=== PATIENT | male | born 1965 | race American Indian/Alaskan Native ===

== ENCOUNTER 2018-12-19 16:02 | Emergency (ER) | payer OTHER ==
[2018-12-19 18:32] LABS: Basophils # (Auto) 0.1 K/mm3 (0.0-0.1); Basophils % (Auto) 0.7 % (0.0-1.8); Hematocrit 40.9 % (35.5-45.6); Hemoglobin 13.5 gm/dl (11.8-15.2); Lymphocytes # (Auto) 0.7 K/mm3 (1.2-5.4); Lymphocytes % (Auto) 7.5 % (13.4-35.0); Mean Corpuscular HGB Conc 33 % (32-34); Mean Corpuscular Volume 93 fl (84-94); Monocytes # (Auto) 0.8 K/mm3 (0.0-0.8); Monocytes % (Auto) 7.8 % (0.0-7.3); Platelet Count 274 K/mm3 (140-440); Red Blood Count 4.39 M/mm3 (3.65-5.03); Red Cell Distribution Width 15.5 % (13.2-15.2)
[2018-12-19 18:59] LABS: Alanine Aminotransferase 19 units/L (7-56); BUN/Creatinine Ratio 9; Blood Urea Nitrogen 12 mg/dL (9-20); Calcium 8.5 mg/dL (8.4-10.2); Hemolysis Index 4
[2018-12-19] MEDS ORDERED: K-DUR PO ONE (19:14)
--- NOTE | 2018-12-19 19:46 | Emergency Department Report ---
HPI - General Chief Complaint: Medical Clearance Time Seen by Provider: 12/19/18 16:49 - HPI HPI: 53-year-old -[place] male presents to the emergency department after he was found acting bizarrely at a pawn shop and then became unresponsive briefly. EMS was called and gave the patient 0.5 mg of IV Narcan and the patient immediately became more awake and alert. Since being in the emergency department, the patient is an awake, calm, appropriate. He admits to snorting some heroin earlier. He denies daily illicit drug use. He denies any current complaints. He has a past medical history of hypertension and admits that he has been out of his medication for the past few months. He does not have a primary care physician. No recent travel or sick contacts at home. ED Past Medical Hx - Past Medical History Previous Medical History?: Yes Hx Hypertension: Yes - Surgical History Past Surgical History?: No - Social History Smoking Status: Current Every Day Smoker Substance Use Type: Alcohol, Heroin - Medications Home Medications: Home Medications Medication Instructions Recorded Confirmed Last Taken Type amLODIPine [Norvasc] 10 mg PO DAILY #30 tab 12/19/18 Unknown Rx ED Review of Systems ROS: Stated complaint: POSSIBLE O.D. Other details as noted in HPI Comment: All other systems reviewed and negative Constitutional: denies: chills, fever Eyes: denies: eye pain, vision change ENT: denies: ear pain, throat pain Respiratory: denies: cough, shortness of breath Cardiovascular: syncope (unresponsive episode). denies: chest pain Gastrointestinal: denies: abdominal pain, vomiting Genitourinary: denies: dysuria, discharge Musculoskeletal: denies: back pain, arthralgia Skin: denies: rash, lesions Neurological: denies: headache, weakness Physical Exam - Physical Exam Vital Signs: Vital Signs 12/19/18 16:30 Temperature 98.9 F Pulse Rate 94 H Respiratory 12 Rate Blood Pressure 192/121 O2 Sat by Pulse 95 Oximetry Physical Exam: GENERAL: The patient is well-developed well-nourished. HENT: Normocephalic. Atraumatic. Patient has moist mucous membranes. EYES: Extraocular motions are intact. NECK: Supple. Trachea is midline. CHEST/LUNGS: Clear to auscultation. There is no respiratory distress noted. HEART/CARDIOVASCULAR: Regular. There is no tachycardia. There is no murmur. ABDOMEN: Abdomen is soft, nontender. Patient has normal bowel sounds. There is no abdominal distention. SKIN: Skin is warm and dry. NEURO: The patient is awake, alert, and oriented. The patient is cooperative. The patient has no focal neurologic deficits. The patient has normal speech. MUSCULOSKELETAL: There is no tenderness or deformity. There is no limitation range of motion. There is no evidence of acute injury. ED Course Vital Signs 12/19/18 16:30 Temperature 98.9 F Pulse Rate 94 H Respiratory 12 Rate Blood Pressure 192/121 O2 Sat by Pulse 95 Oximetry ED Medical Decision Making - Lab Data Result diagrams: 12/19/18 18:06 12/19/18 18:06 - Medical Decision Making The patient originally came in to the emergency department after he was acting bizarrely and had an unresponsive episode while at a pawn shop. The patient responded to Narcan which is because the patient had used heroin. Since being in the emergency department he has been awake, alert, appropriate. No focal, motor or sensory deficits and his cranial nerves are intact. He was reevaluated multiple times over almost 4 hours and has remained stable and awake. Labs have been mostly unremarkable except for very mild hypokalemia that was replaced with potassium chloride. The patient had some elevated blood pressure that came down to a more reasonable level prior to discharge. He will be started on amlodipine and has been given referrals for primary care. We discussed staying away from any further illicit drug use or abuse. He will return to the ER with any worsening of his symptoms or any acute distress. Critical Care Time: No Critical care attestation.: If time is entered above; I have spent that time in minutes in the direct care of this critically ill patient, excluding procedure time. ED Disposition Clinical Impression: Heroin abuse, Noncompliance with medication regimen Hypertension Qualifiers: Hypertension type: essential hypertension Qualified Code(s): I10 - Essential (primary) hypertension Disposition: - TO HOME OR SELFCARE Is pt being admited?: No Condition: Stable Instructions: Narcotic Abuse (ED), Hypertension (ED) Additional Instructions: Please avoid any illicit drug use. Return to the emergency Department with any worsening of your symptoms or any acute distress. Try and stay away from foods that are high in salt and caffeinated products to help with her blood pressure. I am starting him on a blood pressure medication called amlodipine/Norvasc that is taken once per day, usually in the morning. Keep a blood pressure log. Prescriptions: amLODIPine [Norvasc] 10 mg PO DAILY #30 tab Referrals: [facility] [Outside] - 2-3 Days LORI MISHRA MD [Staff Physician] - 2-3 Days Time of Disposition: 19:46
[2018-12-19 20:46] VITALS: BP 148/62
== END 2018-12-19 20:00 | disposition home or self-care (01) ==
LOC: ED 16:02
DX: F11.129 Opioid abuse with intoxication, unspecified (principal); I10 Essential (primary) hypertension; F17.200 Nicotine dependence, unspecified, uncomplicated
CPT/HCPCS: 36415; 80053; 85025; 99283; G0480; 80320